=== PATIENT | male | born 1985 | race Caucasian/White ===

== ENCOUNTER 2017-01-04 11:23 | Emergency (ER) | payer OTHER ==
[~2017-01-04] VITALS: Ht 180.3 cm; Wt 77.6 kg
[~2017-01-04 11:23] MED LIST: COL100 PO; NOR10T PO
[2017-01-04 11:27] VITALS: BP 118/81
== END 2017-01-04 12:25 | disposition home or self-care (01) ==
LOC: ED 11:23
DX: S96.911A Strain of unspecified muscle and tendon at ankle and foot level, right foot, initial encounter (principal); Z88.5 Allergy status to narcotic agent; X37.1XXA Tornado, initial encounter; Y93.89 Activity, other specified; Y92.89 Other specified places as the place of occurrence of the external cause; Y99.8 Other external cause status
CPT/HCPCS: Q0092

== ENCOUNTER 2018-12-13 11:59 | Inpatient (IN) | payer MEDICAID ==
[~2018-12-13] VITALS: Ht 180.3 cm; Wt 72.6 kg
[2018-12-13 12:40] LABS: PLATELET COUNT 521 x10^3mcL (130-400); RED CELL DISTRIBUTION WIDTH 22.6 % (11.5-14.5)
[2018-12-13 12:47] LABS: CALCIUM 9.2 mg/dL (8.5-10.1); CARBON DIOXIDE 24.6 mmol/L (21-32); CHLORIDE SERUM 103 mmol/L (98-107); GFR1 > 60 mL/min; GLUCOSE SERUM 97 mg/dL (74-106); POTASSIUM SERUM 4.7 mmol/L (3.5-5.1); SODIUM SERUM 137 mmol/L (136-145)
[2018-12-13 12:52] LABS: ALBUMIN 4.2 g/dL (3.4-5.0); ALKALINE PHOSPHATASE 69 U/L (46-116); ALT/SGPT 21 U/L (16-63); AST/SGOT 16 U/L (15-37); BILIRUBIN TOTAL 0.7 mg/dL (0.20-1.00); TOTAL PROTEIN, SERUM 8.1 g/dL (6.4-8.2)
[2018-12-13 13:09] LABS: ATYPICAL LYMPH 9 %; BAND NEUTROPHIL 0 % (0-10); BASOPHIL 0 % (0-2); MONOCYTE 17 % (0-7); SEGMENTED NEUTROPHILS 47 % (37-75); ovalocyte/elliptocyte 3+; rbc morphology (normal/abnorm) ABNORMAL (NORMAL)
[2018-12-13 13:10] LABS: PLATELET MORPHOLOGY PLATELETS INCREASED; acanthocyte (spur cell) 1+
[2018-12-13 14:34] LABS: CHOLESTEROL/HDL RATIO 2.5; MAGNESIUM 2.1 mg/dL (1.8-2.4)
[2018-12-13 14:37] LABS: T3 TOTAL 0.95 ng/mL
[2018-12-13 15:02] LABS: FREE T4 0.9 ng/dL (0.76-1.46); FREE THYROXINE INDEX 2.2 ug/dL (1.4-4.5); T4(THYROXINE) 6.6 ug/dL (4.7-13.3)
[2018-12-13 15:03] VITALS: BP 124/59
[2018-12-13 15:05] VITALS: Ht 180.3 cm; Wt 72.6 kg
[2018-12-13 18:21] LABS: microscopic required? NO
[2018-12-13 18:50] LABS: UA SPECIFIC GRAVITY 1.015 (1.005-1.035); urine erythrocyte NEGATIVE (NEGATIVE)
[2018-12-13 18:58] LABS: AMPHETAMINE QUAL UR POSITIVE (See below)
[2018-12-13 20:41] VITALS: BP 109/65
[2018-12-13 21:47] LABS: PLATELET COUNT 490 x10^3mcL (130-400)
[2018-12-13 21:48] LABS: RED CELL DISTRIBUTION WIDTH 27.5 % (11.5-14.5)
[2018-12-13 22:19] LABS: ATYPICAL LYMPH 9 %; MONOCYTE 10 % (0-7); SEGMENTED NEUTROPHILS 56 % (37-75); rbc morphology (normal/abnorm) ABNORMAL (NORMAL)
[2018-12-13 22:20] LABS: PLATELET MORPHOLOGY PLATELETS INCREASED; acanthocyte (spur cell) 1+; ovalocyte/elliptocyte 2+; tear drop cell (dacryocyte) 1+
[2018-12-14 05:06] VITALS: BP 99/56
[2018-12-14 07:48] LABS: CALCIUM 8.9 mg/dL (8.5-10.1); CARBON DIOXIDE 24.4 mmol/L (21-32); CHLORIDE SERUM 107 mmol/L (98-107); CREATININE SERUM 0.9 mg/dL (0.7-1.3); GFR1 > 60 mL/min; GLUCOSE SERUM 96 mg/dL (74-106); MAGNESIUM 2.1 mg/dL (1.8-2.4); PHOSPHOROUS 4.5 mg/dL (2.5-4.9); SODIUM SERUM 142 mmol/L (136-145)
[2018-12-14 10:09] VITALS: BP 93/48
[2018-12-14 10:21] LABS: PLATELET COUNT 490 x10^3mcL (130-400); RED CELL DISTRIBUTION WIDTH 22.9 % (11.5-14.5)
[2018-12-14 13:02] LABS: BAND NEUTROPHIL 0 % (0-10); BASOPHIL 0 % (0-2); MONOCYTE 9 % (0-7); SEGMENTED NEUTROPHILS 47 % (37-75); acanthocyte (spur cell) 1+; ovalocyte/elliptocyte 2+; rbc morphology (normal/abnorm) ABNORMAL (NORMAL); target cell (codocyte) 1+
[2018-12-14 13:04] LABS: PLATELET MORPHOLOGY PLATELETS INCREASED
[2018-12-14 13:22] VITALS: BP 104/59
[2018-12-14 18:24] VITALS: BP 107/56
[2018-12-14 21:11] VITALS: BP 105/51
[2018-12-15 05:23] VITALS: BP 98/55
[2018-12-15 07:33] LABS: CALCIUM 8.8 mg/dL (8.5-10.1); CARBON DIOXIDE 26.8 mmol/L (21-32); CHLORIDE SERUM 106 mmol/L (98-107); GFR1 > 60 mL/min; GLUCOSE SERUM 89 mg/dL (74-106); POTASSIUM SERUM 4.3 mmol/L (3.5-5.1); SODIUM SERUM 142 mmol/L (136-145)
[2018-12-15 07:43] LABS: PLATELET COUNT 477 x10^3mcL (130-400); RED CELL DISTRIBUTION WIDTH 27.4 % (11.5-14.5)
[2018-12-15 09:30] VITALS: BP 97/55
[2018-12-15 13:32] LABS: BAND NEUTROPHIL 0 % (0-10); BASOPHIL 1 % (0-2); MONOCYTE 7 % (0-7); SEGMENTED NEUTROPHILS 70 % (37-75)
[2018-12-15 13:33] LABS: ovalocyte/elliptocyte 2+; rbc morphology (normal/abnorm) ABNORMAL (NORMAL)
[2018-12-15 13:34] LABS: PLATELET MORPHOLOGY PLATELETS INCREASED
[2018-12-15 21:18] VITALS: BP 103/54
[2018-12-16 05:04] VITALS: BP 98/54
[2018-12-16 06:35] LABS: CALCIUM 8.7 mg/dL (8.5-10.1); CARBON DIOXIDE 27.1 mmol/L (21-32); CHLORIDE SERUM 106 mmol/L (98-107); GFR1 > 60 mL/min; GLUCOSE SERUM 95 mg/dL (74-106); POTASSIUM SERUM 4.6 mmol/L (3.5-5.1); SODIUM SERUM 139 mmol/L (136-145)
[2018-12-16 08:20] VITALS: BP 115/65
[2018-12-16 08:43] LABS: PLATELET COUNT 444 x10^3mcL (130-400); RED CELL DISTRIBUTION WIDTH 28.5 % (11.5-14.5)
[2018-12-16 09:02] LABS: BAND NEUTROPHIL 1 % (0-10); BASOPHIL 0 % (0-2); MONOCYTE 8 % (0-7); SEGMENTED NEUTROPHILS 63 % (37-75)
[2018-12-16 09:03] LABS: rbc morphology (normal/abnorm) ABNORMAL (NORMAL)
[2018-12-16 09:04] LABS: ovalocyte/elliptocyte 2+
[2018-12-16] MEDS ORDERED: NATURAL IRON65 MG PO (10:28)
[2018-12-16] MEDS ORDERED: MINO PO (10:30)
[2018-12-16] MEDS ORDERED: MIRALAX17 GM/Dose PO (10:32)
[2018-12-16 12:00] VITALS: BP 107/66
[2018-12-16 12:56] VITALS: BP 107/66
== END 2018-12-16 13:33 | disposition home or self-care (01) | DRG 952 ==
LOC: ED 11:59 → DU 13:59
PROVIDERS: Emergency Medicine; Internal Medicine Gastroenterology; Surgery; ADMIT General Practice
PROC: 30233N1 Transfusion of Nonautologous Red Blood Cells into Peripheral Vein, Percutaneous Approach (ICD-10-PCS; 2018-12-13)
PROC: 0DJD8ZZ Inspection of Lower Intestinal Tract, Via Natural or Artificial Opening Endoscopic (ICD-10-PCS; 2018-12-14)
PROC: 0DB68ZX Excision of Stomach, Via Natural or Artificial Opening Endoscopic, Diagnostic (ICD-10-PCS; 2018-12-14 09:00)
PROC: 0D758ZZ Dilation of Esophagus, Via Natural or Artificial Opening Endoscopic (ICD-10-PCS; 2018-12-14 09:00)
PROC: 06BY0ZC Excision of Hemorrhoidal Plexus, Open Approach (ICD-10-PCS; principal; 2018-12-15 12:00)
DX: D50.0 Iron deficiency anemia secondary to blood loss (chronic) (principal); R13.10 Dysphagia, unspecified; K64.8 Other hemorrhoids; K22.4 Dyskinesia of esophagus; K29.70 Gastritis, unspecified, without bleeding; J45.909 Unspecified asthma, uncomplicated; F12.10 Cannabis abuse, uncomplicated; F17.210 Nicotine dependence, cigarettes, uncomplicated
CPT/HCPCS: 43235; 45378; 84439; C9113; J0690; J1170; J1200; J1610; J1885; J2001; J2175; J2250; J2310; J2405; J2704; J2916; J3010; J3490; J7030; J7120; P9016; Q0163

== ENCOUNTER 2018-12-18 14:48 | Emergency (ER) | payer MEDICAID ==
[~2018-12-18] VITALS: Ht 180.3 cm; Wt 74.8 kg
[~2018-12-18 14:48] MED LIST changes: +MINO PO; +MIRALAX17 GM/Dose PO; +NATURAL IRON65 MG PO
[2018-12-18 16:44] LABS: CALCIUM 8.6 mg/dL (8.5-10.1); CARBON DIOXIDE 28.9 mmol/L (21-32); CHLORIDE SERUM 107 mmol/L (98-107); CREATININE SERUM 0.8 mg/dL (0.7-1.3); GFR1 > 60 mL/min; GLUCOSE SERUM 98 mg/dL (74-106); POTASSIUM SERUM 4.2 mmol/L (3.5-5.1); SODIUM SERUM 143 mmol/L (136-145)
[2018-12-18 16:49] LABS: ALBUMIN 3.7 g/dL (3.4-5.0); ALKALINE PHOSPHATASE 63 U/L (46-116); ALT/SGPT 11 U/L (16-63); AST/SGOT 13 U/L (15-37); TOTAL PROTEIN, SERUM 7.1 g/dL (6.4-8.2)
[2018-12-18 16:50] LABS: PLATELET COUNT 372 x10^3mcL (130-400)
[2018-12-18 17:02] LABS: RED CELL DISTRIBUTION WIDTH 27.9 % (11.5-14.5)
[2018-12-18 17:40] LABS: BAND NEUTROPHIL 0 % (0-10); BASOPHIL 0 % (0-2); MONOCYTE 11 % (0-7); SEGMENTED NEUTROPHILS 58 % (37-75); rbc morphology (normal/abnorm) ABNORMAL (NORMAL)
[2018-12-18 21:41] VITALS: BP 96/48
== END 2018-12-18 21:29 | disposition home or self-care (01) ==
LOC: ED 14:48
PROVIDERS: Specialist
DX: D64.9 Anemia, unspecified (principal); J45.909 Unspecified asthma, uncomplicated; Z88.5 Allergy status to narcotic agent
CPT/HCPCS: J7030; J7040; P9016; Q0092

== ENCOUNTER 2020-03-12 13:38 | Emergency (ER) | payer MEDICAID ==
[~2020-03-12] VITALS: Ht 172.7 cm; Wt 73.0 kg
[2020-03-12 13:45] VITALS: Ht 172.7 cm; Wt 73.0 kg
[2020-03-12 15:04] VITALS: BP 132/83
== END 2020-03-12 15:04 | disposition home or self-care (01) ==
LOC: ED 13:38
DX: S39.011A Strain of muscle, fascia and tendon of abdomen, initial encounter (principal); J45.909 Unspecified asthma, uncomplicated; W01.0XXA Fall on same level from slipping, tripping and stumbling without subsequent striking against object, initial encounter; Y93.89 Activity, other specified; Y92.89 Other specified places as the place of occurrence of the external cause; Y99.8 Other external cause status
CPT/HCPCS: J1885

== ENCOUNTER 2020-03-16 12:09 | Emergency (ER) | payer MEDICAID ==
[~2020-03-16] VITALS: Ht 180.3 cm; Wt 74.4 kg
[2020-03-16 12:17] VITALS: Ht 180.3 cm; Wt 74.4 kg
[2020-03-16 13:48] LABS: BASOPHIL % 0.4 % (0-2); PLATELET COUNT 258 x10^3mcL (130-400)
[2020-03-16 13:51] LABS: RED CELL DISTRIBUTION WIDTH 15.7 % (11.5-14.5)
[2020-03-16 13:55] LABS: CALCIUM 8.9 mg/dL (8.5-10.1); CARBON DIOXIDE 27.4 mmol/L (21-32); CHLORIDE SERUM 102 mmol/L (98-107); CREATININE SERUM 1.1 mg/dL (0.7-1.3); GFR1 > 60 mL/min; GLUCOSE SERUM 91 mg/dL (74-106); POTASSIUM SERUM 4.1 mmol/L (3.5-5.1); SODIUM SERUM 139 mmol/L (136-145)
[2020-03-16 14:00] LABS: ALBUMIN 4.3 g/dL (3.4-5.0); ALKALINE PHOSPHATASE 74 U/L (46-116); ALT/SGPT 38 U/L (16-63); AST/SGOT 34 U/L (15-37); LIPASE 173 IU/L (73-393); TOTAL PROTEIN, SERUM 7.6 g/dL (6.4-8.2)
[2020-03-16 14:13] LABS: UA SPECIFIC GRAVITY 1.025 (1.005-1.035); microscopic required? YES; urine erythrocyte 1+ (NEGATIVE)
[2020-03-16 15:29] VITALS: BP 121/73
== END 2020-03-16 15:29 | disposition home or self-care (01) ==
LOC: ED 12:09
PROVIDERS: Emergency Medicine
DX: R10.31 Right lower quadrant pain (principal); J45.909 Unspecified asthma, uncomplicated
CPT/HCPCS: Q9967

== ENCOUNTER 2020-03-22 19:52 | Emergency (ER) | payer MEDICAID ==
[~2020-03-22] VITALS: Ht 180.3 cm; Wt 74.8 kg
[2020-03-22 19:58] VITALS: Ht 180.3 cm; Wt 74.8 kg
[2020-03-22 20:56] VITALS: BP 103/65
== END 2020-03-22 20:56 | disposition home or self-care (01) ==
LOC: ED 19:52
DX: S39.011A Strain of muscle, fascia and tendon of abdomen, initial encounter (principal); J45.901 Unspecified asthma with (acute) exacerbation; F17.210 Nicotine dependence, cigarettes, uncomplicated; W17.89XA Other fall from one level to another, initial encounter; Y93.89 Activity, other specified; Y92.89 Other specified places as the place of occurrence of the external cause; Y99.8 Other external cause status

== ENCOUNTER 2020-04-04 12:48 | Emergency (ER) | payer MEDICAID | END 2020-04-04 13:14 | disposition left against medical advice (07) | LOC: ED 12:48 | DX: Z53.21 Procedure and treatment not carried out due to patient leaving prior to being seen by health care provider (principal) ==

== ENCOUNTER 2020-04-04 13:29 | Emergency (ER) | payer MEDICAID ==
[~2020-04-04] VITALS: Ht 180.3 cm; Wt 76.2 kg
[2020-04-04 13:46] VITALS: Ht 180.3 cm; Wt 76.2 kg
[2020-04-04 15:09] VITALS: BP 127/79
== END 2020-04-04 15:09 | disposition home or self-care (01) ==
LOC: ED 13:29
DX: S01.511A Laceration without foreign body of lip, initial encounter (principal); J45.909 Unspecified asthma, uncomplicated; W50.0XXA Accidental hit or strike by another person, initial encounter; Y93.89 Activity, other specified; Y92.89 Other specified places as the place of occurrence of the external cause; Y99.8 Other external cause status
CPT/HCPCS: 90715